=== PATIENT | female | born 1955 | race Hispanic/Latino ===

== ENCOUNTER 2018-06-20 18:27 | Emergency (ER) | payer BC ==
[2018-06-20 19:13] VITALS: BP 154/81; PULSE 72; RESP 16; TEMP 98.2; O2SAT 99
--- NOTE | 2018-06-20 21:05 | ED PDOC ---
Lower Extremity Pain/Injury Time Seen by Provider: 06/20/18 19:34 Chief Complaint (Nursing): Lower Extremity Problem/Injury Chief Complaint (Provider): Lower Extremity Problem/Injury History Per: Patient History/Exam Limitations: no limitations Current Symptoms Are (Timing): Still Present Additional Complaint(s): Tierney Rios is a 63 year old female with a past medical history of osteoar thritis, who presents to the emergency department complaining of left knee pain. Patient states she has not had any fall or trauma. She states she [facility] for her osteoarthritis. Patient denies any other complaints. PMD: He Gomez Past Medical History Reviewed: Historical Data, Nursing Documentation, Vital Signs Vital Signs: Last Vital Signs Temp 98.2 F 06/20/18 19:11 Pulse 72 06/20/18 19:11 Resp 16 06/20/18 19:11 BP 154/81 H 06/20/18 19:11 Pulse Ox 99 06/20/18 19:11 - Medical History Other PMH: osteoarthritis in right knee - Surgical History Surgical History: No Surg Hx - Family History Family History: States: Unknown Family Hx - Home Medications Home Medications: Ambulatory Orders Medication Instructions Recorded Diclofenac Potassium 50 mg PO BID #20 tablet 06/20/18 Diclofenac Sodium [Voltaren] 1 gm TP TID #100 gm 06/20/18 - Allergies Allergies/Adverse Reactions: Allergies Allergy/AdvReac Type Severity Reaction Status Date / Time cefuroxime [From Ceftin] Allergy ANAPHYLAXIS Verified 06/20/18 19:18 sulfamethoxazole Allergy ANAPHYLAXIS Verified 06/20/18 19:18 [From Bactrim] trimethoprim [From Bactrim] Allergy ANAPHYLAXIS Verified 06/20/18 19:18 Review of Systems ROS Statement: Except As Marked, All Systems Reviewed And Found Negative Musculoskeletal: Positive for: Other (left knee pain) Physical Exam - Reviewed Nursing Documentation Reviewed: Yes Vital Signs Reviewed: Yes - Physical Exam Appears: Positive for: Non-toxic, No Acute Distress Head Exam: Positive for: ATRAUMATIC, NORMOCEPHALIC Skin: Positive for: Normal Color, Warm, Dry. Negative for: Diaphoresis, Pallor, Rash Eye Exam: Positive for: Normal appearance. Negative for: Nystagmus, Periorbital swelling, Periorbital tenderness Cardiovascular/Chest: Positive for: Regular Rate, Rhythm. Negative for: Murmur Respiratory: Positive for: Normal Breath Sounds. Negative for: Respiratory Distress Extremity: Positive for: Other (mild crepitus in left knee; extension up to 80 degress with 10 degress lag; valgus and varus tension is proper) - ECG O2 Sat by Pulse Oximetry: 99 (RA) Pulse Ox Interpretation: Normal Medical Decision Making Medical Decision Making: Time: 2057 Plan: --Left xray --Decadron 10 mg IM --Toradol 60 mg IM Will perform an knee x-ray to rule out osteoarthritis. Will treat with NSAIDs. Scribe Attestation: Documented by Da Cope, acting as a scribe for Sukh Soares PA-C. Provider Scribe Attestation: All medical record entries made by the Scribe were at my direction and personally dictated by me. I have reviewed the chart and agree that the record accurately reflects my personal performance of the history, physical exam, medical decision making, and the department course for this patient. I have also personally directed, reviewed, and agree with the discharge instructions and disposition. Disposition - Clinical Impression Clinical Impression: Osteoarthritis - Patient ED Disposition Is Patient to be Admitted: No Doctor Will See Patient In The: Office Counseled Patient/Family Regarding: Studies Performed, Diagnosis, Need For Followup, Rx Given - Disposition Referrals: He Gomez MD [Staff Provider] - Disposition: Routine/Home Disposition Time: 22:49 Condition: STABLE Prescriptions: Diclofenac Potassium 50 mg PO BID #20 tablet Diclofenac Sodium [Voltaren] 1 gm TP TID #100 gm Instructions: Osteoarthritis (DC), Osteoarthritis Forms: [employer] (Lithuanian)
--- NOTE | 2018-06-21 10:52 | RAD ---
Date of service: 06/20/2018 PROCEDURE: Left Knee Radiographs. HISTORY: Pain. COMPARISON: None. FINDINGS: BONES: Normal. No fracture. JOINTS: Mild degenerative osteoarthritis most notably affecting the patellofemoral and medial compartments. JOINT EFFUSION: Suspect trace joint effusion OTHER FINDINGS: None. IMPRESSION: Mild degenerative osteoarthritis.
== END 2018-06-20 23:42 | disposition home or self-care (01) ==
LOC: H.ER 18:27
DX: M17.12 Unilateral primary osteoarthritis, left knee (principal); Z88.1 Allergy status to other antibiotic agents; Z88.2 Allergy status to sulfonamides
CPT/HCPCS: 73562; 96372; 99283; J1100; J1885